=== PATIENT | female | born 1970 | race American Indian/Alaskan Native ===

== ENCOUNTER 2019-04-26 14:35 | Emergency (ER) | payer OTHER ==
--- NOTE | 2019-04-26 15:03 | Event Note ---
ED Screening Note Date of service: 04/26/19 Time: 15:00 ED Screening Note: This is a 48 y.o. F. that presents to the ER with 2 episodes of hematemesis today. Reports chest discomfort with symptoms. This initial assessment/diagnostic orders/clinical plan/treatment(s) is/are subject to change based on patients health status, clinical progression and re- assessment by fellow clinical providers in the ED. Further treatment and workup at subsequent clinical providers discretion. Patient/guardian urged not to elope from the ED as their condition may be serious if not clinically assessed and managed. Initial orders include: Labs
[2019-04-26 15:37] LABS: Eosinophils # (Auto) 0.1 K/mm3 (0.0-0.4); Eosinophils % (Auto) 2.2 % (0.0-4.3); Hematocrit 37.7 % (30.3-42.9); Hemoglobin 12.7 gm/dl (10.1-14.3); Lymphocytes # (Auto) 1.6 K/mm3 (1.2-5.4); Lymphocytes % (Auto) 30.9 % (13.4-35.0); Mean Corpuscular HGB Conc 34 % (30-34); Mean Corpuscular Volume 88 fl (79-97); Monocytes # (Auto) 0.6 K/mm3 (0.0-0.8); Monocytes % (Auto) 10.9 % (0.0-7.3); Platelet Count 260 K/mm3 (140-440); Red Blood Count 4.27 M/mm3 (3.65-5.03); Red Cell Distribution Width 14.7 % (13.2-15.2)
[2019-04-26 15:57] LABS: BUN/Creatinine Ratio 18; Blood Urea Nitrogen 14 mg/dL (7-17); Calcium 8.9 mg/dL (8.4-10.2); Hemolysis Index 6
[2019-04-26] MEDS ORDERED: ZOFRAN ODT PO ONE (17:49)
--- NOTE | 2019-04-26 17:55 | Emergency Department Report ---
ED Abdominal Pain HPI - General Chief Complaint: GI Bleed Stated Complaint: VOMITTING BLOOD Time Seen by Provider: 04/26/19 14:59 Source: patient, EMS Mode of arrival: Wheelchair Limitations: No Limitations - History of Present Illness Initial Comments: pt is a 48 y.o. AAF. that presents to the ER with 2 episodes of hematemesis today. Reports chest discomfort with symptoms. denies hx of VT , no htn, no GI bleed , no back pain no sob no blood stool no melena Onset/Timin -: days(s) Location: epigastric Radiation: epigastric Migration to: no migration Severity: moderate Severity scale (0 -10): 4 Quality: burning Consistency: constant Improves With: other (nothing tried ) Worsens With: eating Associated Symptoms: nausea, vomiting - Related Data LMP Date: 04/19/17 (s/p Hyst ) Home Medications Medication Instructions Recorded Confirmed Last Taken Levothyroxine [Synthroid] 75 mcg PO QAM 07/12/13 07/12/13 07/12/13 05:30 Previous Rx's Medication Instructions Recorded Last Taken Type Ciprofloxacin HCl [Cipro] 500 mg PO BID 7 Days tablet 07/12/13 Unknown Rx Phenazopyridine [Pyridium] 200 mg PO Q12HR #4 tablet 07/12/13 Unknown Rx Promethazine [Phenergan] 25 mg PO Q6H PRN #7 tablet 07/12/13 Unknown Rx methylPREDNISolone [Medrol Dose 8 mg PO QAM #1 tab.ds.pk 07/12/13 Unknown Rx Lukas] Ibuprofen [Motrin 600 MG tab] 600 mg PO Q8H PRN #30 tablet 12/22/15 Unknown Rx methOCARBAMOL [Robaxin TAB] 500 mg PO Q6H PRN #20 tablet 12/22/15 Unknown Rx Ranitidine HCl [Zantac] 150 mg PO BID #60 tablet 04/26/19 Unknown Rx Allergies Allergy/AdvReac Type Severity Reaction Status Date / Time No Known Allergies Allergy Verified 04/26/19 14:37 ED Review of Systems ROS: Stated complaint: VOMITTING BLOOD Other details as noted in HPI Constitutional: denies: chills, fever Eyes: denies: eye pain, eye discharge, vision change ENT: denies: ear pain, throat pain Respiratory: denies: cough, shortness of breath, wheezing Cardiovascular: chest pain. denies: palpitations Endocrine: no symptoms reported Gastrointestinal: abdominal pain, nausea, vomiting. denies: diarrhea, constipation, hematemesis, melena, hematochezia Genitourinary: denies: urgency, dysuria, discharge Musculoskeletal: denies: back pain, joint swelling, arthralgia Skin: denies: rash, lesions Neurological: denies: headache, weakness, paresthesias Psychiatric: denies: anxiety, depression Hematological/Lymphatic: denies: easy bleeding, easy bruising ED Past Medical Hx - Past Medical History Additional medical history: hypothyroid - Surgical History Additional Surgical History: HYST. - Social History Smoking Status: Current Every Day Smoker - Medications Home Medications: Home Medications Medication Instructions Recorded Confirmed Last Taken Type Ciprofloxacin HCl [Cipro] 500 mg PO BID 7 Days tablet 07/12/13 Unknown Rx Levothyroxine [Synthroid] 75 mcg PO QAM 07/12/13 07/12/13 07/12/13 05:30 History Phenazopyridine [Pyridium] 200 mg PO Q12HR #4 tablet 07/12/13 Unknown Rx Promethazine [Phenergan] 25 mg PO Q6H PRN #7 tablet 07/12/13 Unknown Rx methylPREDNISolone [Medrol Dose 8 mg PO QAM #1 tab.ds.pk 07/12/13 Unknown Rx Lukas] Ibuprofen [Motrin 600 MG tab] 600 mg PO Q8H PRN #30 tablet 12/22/15 Unknown Rx methOCARBAMOL [Robaxin TAB] 500 mg PO Q6H PRN #20 tablet 12/22/15 Unknown Rx Ranitidine HCl [Zantac] 150 mg PO BID #60 tablet 04/26/19 Unknown Rx ED Physical Exam - General Limitations: No Limitations General appearance: alert, in no apparent distress - Head Head exam: Present: atraumatic, normocephalic - Eye Eye exam: Present: normal appearance, PERRL Pupils: Present: normal accommodation - ENT ENT exam: Present: normal exam. Absent: normal orophraynx, mucous membranes moist, TM's normal bilaterally, normal external ear exam - Neck Neck exam: Present: normal inspection, full ROM. Absent: tenderness, meningismus, lymphadenopathy, thyromegaly - Respiratory Respiratory exam: Present: normal lung sounds bilaterally. Absent: respiratory distress, wheezes, stridor, chest wall tenderness - Cardiovascular Cardiovascular Exam: Present: regular rate, normal rhythm, normal heart sounds. Absent: systolic murmur, diastolic murmur, rubs, gallop - GI/Abdominal GI/Abdominal exam: Present: soft, distended, tenderness, guarding, rebound, rigid, normal bowel sounds. Absent: bruit, hernia - Rectal Rectal exam: Present: deferred - Extremities Exam Extremities exam: Present: normal inspection, normal capillary refill - Back Exam Back exam: Present: normal inspection, full ROM. Absent: tenderness, CVA tenderness (R), CVA tenderness (L), muscle spasm, paraspinal tenderness, vertebral tenderness, rash noted - Neurological Exam Neurological exam: Present: alert, oriented X3, CN II-XII intact, normal gait, reflexes normal - Psychiatric Psychiatric exam: Present: normal affect, normal mood - Skin Skin exam: Present: warm, dry, intact, normal color. Absent: rash ED Course Vital Signs 04/26/19 04/26/19 15:00 19:50 Temperature 97.9 F 98.2 F Pulse Rate 63 80 Respiratory 18 16 Rate Blood Pressure 148/79 Blood Pressure 116/64 [Left] O2 Sat by Pulse 100 100 Oximetry ED Medical Decision Making - Lab Data Result diagrams: 04/26/19 15:28 04/26/19 15:28 Labs 04/26/19 04/26/19 04/26/19 15:28 15:28 15:28 WBC 5.1 RBC 4.27 Hgb 12.7 Hct 37.7 MCV 88 MCH 30 MCHC 34 RDW 14.7 Plt Count 260 Lymph % (Auto) 30.9 [place] % (Auto) 10.9 H Eos % (Auto) 2.2 Baso % (Auto) 1.0 Lymph # 1.6 [place] # 0.6 Eos # 0.1 Baso # 0.0 Seg Neutrophils % 55.0 Seg Neutrophils # 2.8 PT INR APTT Sodium 143 Potassium 3.6 Chloride 107.3 H Carbon Dioxide 25 Anion Gap 14 BUN 14 Creatinine 0.8 Estimated GFR > 60 BUN/Creatinine Ratio 18 Glucose 95 Calcium 8.9 Total Bilirubin 1.00 Direct Bilirubin < 0.2 Indirect Bilirubin 0.8 AST 13 ALT 15 Alkaline Phosphatase 69 Troponin T < 0.010 Total Protein 7.2 Albumin 4.0 Albumin/Globulin Ratio 1.3 04/26/19 17:56 WBC RBC Hgb Hct MCV MCH MCHC RDW Plt Count Lymph % (Auto) [place] % (Auto) Eos % (Auto) Baso % (Auto) Lymph # [place] # Eos # Baso # Seg Neutrophils % Seg Neutrophils # PT 14.2 INR 1.13 APTT 33.3 Sodium Potassium Chloride Carbon Dioxide Anion Gap BUN Creatinine Estimated GFR BUN/Creatinine Ratio Glucose Calcium Total Bilirubin Direct Bilirubin Indirect Bilirubin AST ALT Alkaline Phosphatase Troponin T Total Protein Albumin Albumin/Globulin Ratio - EKG Data EKG shows normal: sinus rhythm, axis, intervals, QRS complexes, ST-T waves Rate: normal - EKG Data Interpretation: nonspecific ST-T wave anson (EKG interp pt ED atteinding NSR NO ST Elevated VT, twave inversion in anterior leads ) - Radiology Data Radiology results: report reviewed, image reviewed Patient: CHITRA LEWIS MR#: [id number] : 1970 Acct:[id number] Age/Sex: 48 / F ADM Date: 04/26/19 Loc: ED Attending Dr: Ordering Physician: INDIA FRANZ NP Date of Service: 04/26/19 Procedure(s): XR chest routine 2V Accession Number(s): [id number] cc: INDIA FRANZ NP Fluoro Time In Minutes: PROCEDURE: Chest. TECHNIQUE: PA and lateral chest radiographs were obtained. HISTORY: Chest pain. COMPARISONS: None. FINDINGS: The heart and mediastinum appear normal. The lungs are clear and well expanded. There are no pleural effusions. The soft tissues and regional skeleton are unremarkable. IMPRESSION: Normal study. This document is electronically signed by Nehemiah Cast MD., April 26 2019 07:52:41 PM ET Transcribed By: MRM Dictated By: NEHEMIAH CAST MD Electronically Authenticated By: NEHEMIAH CAST MD Signed Date/Time: 04/26/191954 DD/ 00 TD/TT: 04/26/191800 - Medical Decision Making epigastric pain resolved, ekg: NSR No STElevated VT with T wave inversion to anterior leads interp by ED attending, cxr : normal, labs normal, there is no recatal bleeding no hemopysis , plan zantac po bid, follow up with pcp in 2-3 days , this is likely GERD as pt is obes, frequent hearburn , early satiety, belch, epigastric pressure and bloating, there is no sob no n/v no cp no back no diaphoresis , heart score is :0 ,pt dc'd to home in stable condition at this time. Critical care attestation.: If time is entered above; I have spent that time in minutes in the direct care of this critically ill patient, excluding procedure time. ED Disposition Clinical Impression: Nausea & vomiting Qualifiers: Vomiting type: unspecified Vomiting Intractability: non-intractable Qualified Code(s): R11.2 - Nausea with vomiting, unspecified Disposition: DC-01 TO HOME OR SELFCARE Is pt being admited?: No Does the pt Need Aspirin: No Condition: Stable Instructions: Gastroesophageal Reflux Disease (ED), Diet for Ulcers and Gastritis (ED) Prescriptions: Ranitidine HCl [Zantac] 150 mg PO BID #60 tablet Referrals: ESHA SCRUGGS MD [Staff Physician] - 3-5 Days [facility] [Provider Group] - 3-5 Days Forms: Accompanied Note, Work/School Release Form(ED) Time of Disposition: 21:02
[2019-04-26 18:15] LABS: Alanine Aminotransferase 15 units/L (7-56)
[2019-04-26 18:22] LABS: Bilirubin,Direct < 0.2 mg/dL (0-0.2)
[2019-04-26 19:05] LABS: INR 1.13 (0.87-1.13); Partial Thromboplastin Time 33.3 Sec. (24.2-36.6)
[2019-04-26 19:51] VITALS: BP 116/64
--- NOTE | 2019-04-26 19:55 | XRay Report ---
PROCEDURE: Chest. TECHNIQUE: PA and lateral chest radiographs were obtained. HISTORY: Chest pain. COMPARISONS: None. FINDINGS: The heart and mediastinum appear normal. The lungs are clear and well expanded. There are no pleural effusions. The soft tissues and regional skeleton are unremarkable. IMPRESSION: Normal study. This document is electronically signed by Nehemiah Moreno MD., April 26 2019 07:52:41 PM ET
== END 2019-04-26 21:24 | disposition home or self-care (01) ==
LOC: ED 14:35
DX: K92.0 Hematemesis (principal); R07.89 Other chest pain; F17.200 Nicotine dependence, unspecified, uncomplicated; E03.9 Hypothyroidism, unspecified; Z90.710 Acquired absence of both cervix and uterus
CPT/HCPCS: 36415; 71046; 80048; 80076; 84484; 85025; 85610; 85730; 93005; 93010; Q0162